=== PATIENT | female | born 1990 | race Caucasian/White ===

== ENCOUNTER 2017-06-12 17:07 | Inpatient (IN) | payer BC, MEDICAID ==
[~2017-06-12] VITALS: Ht 167.6 cm; Wt 94.0 kg
--- NOTE | ~2017-06-12 | OR ---
PATIENT'S NAME: [facility] AGE: 26 Y [address] ROOM: [place] [address] LOCATION: [facility] ADMIT DATE: 06/12/2017 OR/Procedure Report DISCHARGE DATE: FAMILY PHYSICIAN: PHYSICIAN, NO ATTENDING PHYSICIAN: [place] SURGEON: El Mari MD BARBACK: Dorita Solano Dr.'s assistance was required due to the complexity of the case as well as in compliance with [facility] guidelines. DATE OF PROCEDURE: 06/13/2017 PREOPERATIVE DIAGNOSES: Term intrauterine , maternal preeclampsia, maternal diabetes, and unfavorable cervix. POSTOPERATIVE DIAGNOSES: Term intrauterine , maternal preeclampsia, maternal diabetes, and unfavorable cervix. PROCEDURE: Primary low transverse section. ANESTHESIA: Spinal. ESTIMATED BLOOD LOSS: 500 mL. CLINICAL INDICATION: Dre Dubois is a 26-year-old primigravida female at 38 weeks' gestational age. She has insulin-dependent type 1 diabetes. She would develop hypertension and proteinuria leading to preeclampsia. Recommend she undergo a delivery. Her cervix is closed and unfavorable. She wishes to undergo a delivery. FINDINGS: Delivery of a viable 6 pounds and 6 ounce male , scores 8 at 1 minute and 9 at 5 minutes. umbilical and arterial cord blood gas is pending at the time of dictation. DESCRIPTION OF PROCEDURE: The patient was taken to the operating room, given spinal anesthesia with good results, placed in a supine position with a right hip roll, prepped and draped in the usual fashion. A Pfannenstiel skin incision was made with a scalpel. Subcutaneous tissue was dissected sharply. Rectus muscles were split sharply in the midline as was the peritoneum. Bladder flap created. Myometrium incised with a scalpel. Endometrial cavity was entered bluntly. Uterine incision was performed bluntly. At this point in time, there was rapid and easy delivery of a viable 6 pounds and 6 ounce male in a vertex presentation. The umbilical cord was doubly clamped. The intervening segments cut. was handed off to the awaiting nursing services. umbilical, arterial cord blood, and venous cord blood were obtained for blood gas analysis and routine studies respectively. Placenta [facility] 26 Y [address] ROOM: [place] [address] LOCATION: [facility] ADMIT DATE: 06/12/2017 OR/Procedure Report DISCHARGE DATE: FAMILY PHYSICIAN: PHYSICIAN, NO ATTENDING PHYSICIAN: El Mari delivered spontaneously intact with 3 vessels. Exploration of the uterine cavity noted no residual placental or amniotic membranes. Uterine incision was closed with a running continually locking stitch of 0 chromic suture followed by a second imbricating layer consisting of running continuous stitch of 0 chromic suture. Good hemostasis was obtained. Bladder flap was closed with running continuous stitch of 2-0 Vicryl suture. Abdomen was inspected. Any blood or blood clots were retrieved. Tubes and ovaries were normal bilaterally. Abdominal peritoneum was closed with running continuous stitch of 2-0 Vicryl suture. Fascial incision was closed with 2 running continuous stitches of 0 Vicryl suture tied in the midline. Subcutaneous tissue reapproximated using running continuous stitch of 2-0 Vicryl suture. Skin was closed with a running continuous subcuticular stitch of 4-0 Vicryl suture. Sponge, needle, and instrument counts were correct. The patient tolerated procedure well and was taken to the recovery room in good condition. MD ASHELY LA/pankajl /[id number] d: 06/13/17 2342 t: 06/18/17 0751, OPERATIVE SUMMARY
--- NOTE | ~2017-06-12 | DS ---
PATIENT'S NAME: DRE MADRID [facility] AGE: 26 Y [address] ROOM: [place] [address] LOCATION: [facility] ADMIT DATE: 06/12/2017 Discharge Summary DISCHARGE DATE: 06/16/2017 FAMILY PHYSICIAN: PHYSICIAN, NO ATTENDING PHYSICIAN: El Mari final diagnoses A 38-week intrauterine /delivered; insulin-dependent diabetes; preeclampsia; urinary tract infection, unfavorable cervix. REASON FOR HOSPITALIZATION: Dre Madrid is a primigravida female with type 1 diabetes. She presented with proteinuria, but no other symptoms of preeclampsia to contemporary [employer]. She was admitted for 24-hour urine. Over the course of the day, she developed hypertension along with the proteinuria was aside the diagnosis of preeclampsia. With the unfavorable cervix, it was recommended she undergo a delivery. This was performed. She had an unremarkable postoperative course and her blood pressures were resolved by discharge. DISCHARGE MEDICATIONS: She is given prescriptions for Motrin and Percocet. Please see instruction sheet for specifics regarding her discharge instructions. MD ASHELY LA/felicita /[id number] d: t: 06/28/17 1239, DISCHARGE SUMMARY
[2017-06-12 17:31] LABS: BILIRUBIN URINE NEGATIVE (NEGATIVE); BLOOD URINE 25 /UL (NEGATIVE); COLOR URINE YELLOW (YELLOW); GLUCOSE URINE NEGATIVE (NEGATIVE); KETONE URINE 150 mg/dL (NEGATIVE); LEUKOCYTES URINE 500 /UL (NEGATIVE); NITRITE URINE POSITIVE (NEGATIVE); PH URINE 6.5 (4.0-8.0); PROTEIN URINE 100 mg/dL (NEGATIVE); SPEC GRAVITY URINE 1.015 (1.003-1.035); TURBIDITY URINE 3+ (CLEAR); UROBILINOGEN URINE 1 mg/dL (NORMAL)
[2017-06-12 17:39] LABS: BASOPHIL % 0.2 %; EOSINOPHIL % 0.2 %; HEMATOCRIT 36.6 % (33.0-46.0); HEMOGLOBIN 13.2 g/dL (11.0-15.0); IMMATURE GRANULOCYTE # 0.1 K/uL (0.0-0.3); IMMATURE GRANULOCYTE % 0.5 %; LYMPHOCYTE # 3.2 K/uL (0.8-4.0); LYMPHOCYTE % 29.9 %; MCH 31.8 pg (27.0-34.0); MCHC 36.1 gm/dL (32.0-36.5); MCV 88.2 fl (83.0-98.0); MONOCYTE # 0.5 K/uL (0.0-1.0); MONOCYTE % 4.7 %; MPV 11.7 fl (9.4-12.4); NEUTROPHIL % 64.5 %; NRBC % 0 /100WBC (0-0.00); PLATELET COUNT 182 K/uL (150-450); RBC 4.15 M/uL (3.50-5.00); RDW-CV 12.2 % (11.9-14.6); WBC 10.8 K/uL (4.0-11.0)
[2017-06-12 17:39] LABS: WBC URINE 20-50 #/HPF (NEGATIVE)
[2017-06-12 17:40] LABS: BACTERIA URINE MANY (NEGATIVE); EPITHELIAL URINE 20-50 #/HPF (NEGATIVE); RBC URINE 0-2 #/HPF (NEGATIVE)
[2017-06-12 17:55] LABS: ALBUMIN 2.5 gm/dL (3.5-5.0); ALK PHOS 89 IU/L (33-138); ALT 17 IU/L (12-78); ANION GAP 13.8 (10.0-19.0); AST 19 IU/L (10-40); BLOOD UREA NITROGEN 13 mg/dL (6-24); CALCIUM 8.3 mg/dL (8.5-10.5); CHLORIDE 106 mMol/L (96-110); CO2 22 mMol/L (22-32); CREATININE 0.8 mg/dL (0.5-1.1); POTASSIUM 3.8 mMol/L (3.7-5.1); SODIUM 138 mMol/L (135-145); TOTAL BILIRUBIN 0.4 mg/dL (0.0-1.5); TOTAL PROTEIN 6.8 g/dL (6.0-8.4)
[2017-06-12] MEDS ORDERED: PRENATAL 1+1)(P1 TAB PO (18:27)
[2017-06-12] MEDS ORDERED: HUMALOG MI100 UNIT/5 (18:49)
[2017-06-13 05:29] LABS: BASOPHIL % 0.2 %; EOSINOPHIL % 0.1 %; HEMATOCRIT 31.2 % (33.0-46.0); IMMATURE GRANULOCYTE % 0.4 %; LYMPHOCYTE # 3.5 K/uL (0.8-4.0); LYMPHOCYTE % 36.2 %; MCH 31.5 pg (27.0-34.0); MCHC 35.3 gm/dL (32.0-36.5); MCV 89.4 fl (83.0-98.0); MONOCYTE # 0.7 K/uL (0.0-1.0); MONOCYTE % 6.9 %; MPV 11.7 fl (9.4-12.4); NEUTROPHIL # (ANC) 5.4 K/uL (1.8-7.8); NEUTROPHIL % 56.2 %; NRBC % 0 /100WBC (0-0.00); RBC 3.49 M/uL (3.50-5.00); RDW-CV 12.3 % (11.9-14.6); WBC 9.6 K/uL (4.0-11.0)
[2017-06-13 05:33] LABS: PLATELET COUNT 127 K/uL (150-450)
[2017-06-13 05:50] LABS: ALK PHOS 73 IU/L (33-138); ALT 13 IU/L (12-78); ANION GAP 12.9 (10.0-19.0); AST 15 IU/L (10-40); BLOOD UREA NITROGEN 15 mg/dL (6-24); CALCIUM 7.6 mg/dL (8.5-10.5); CHLORIDE 109 mMol/L (96-110); CO2 21 mMol/L (22-32); CREATININE 0.7 mg/dL (0.5-1.1); POTASSIUM 3.9 mMol/L (3.7-5.1); SODIUM 139 mMol/L (135-145); TOTAL PROTEIN 5.4 g/dL (6.0-8.4)
[2017-06-13 05:57] LABS: TOTAL BILIRUBIN 0.3 mg/dL (0.0-1.5)
[2017-06-13 16:57] LABS: BASOPHIL % 0.1 %; EOSINOPHIL % 0.2 %; HEMATOCRIT 34.4 % (33.0-46.0); HEMOGLOBIN 12.2 g/dL (11.0-15.0); IMMATURE GRANULOCYTE # 0.1 K/uL (0.0-0.3); IMMATURE GRANULOCYTE % 0.7 %; LYMPHOCYTE # 2.7 K/uL (0.8-4.0); MCH 31.7 pg (27.0-34.0); MCHC 35.5 gm/dL (32.0-36.5); MCV 89.4 fl (83.0-98.0); MONOCYTE # 0.5 K/uL (0.0-1.0); MONOCYTE % 5.3 %; MPV 11.2 fl (9.4-12.4); NEUTROPHIL # (ANC) 6.4 K/uL (1.8-7.8); NEUTROPHIL % 65.7 %; NRBC % 0 /100WBC (0-0.00); PLATELET COUNT 169 K/uL (150-450); RBC 3.85 M/uL (3.50-5.00); RDW-CV 12.1 % (11.9-14.6); WBC 9.7 K/uL (4.0-11.0)
[2017-06-13 18:58] LABS: BICARBONATE 22.5 mmol/L (18.0-23.0); PCO2 46 mmHg (35-45); PO2 21 mmHg (80-90)
[2017-06-14 05:02] LABS: BASOPHIL % 0.1 %; EOSINOPHIL % 0.2 %; HEMATOCRIT 30.9 % (33.0-46.0); HEMOGLOBIN 11.2 g/dL (11.0-15.0); IMMATURE GRANULOCYTE # 0.1 K/uL (0.0-0.3); IMMATURE GRANULOCYTE % 0.4 %; LYMPHOCYTE # 3.2 K/uL (0.8-4.0); LYMPHOCYTE % 19.8 %; MCH 32.1 pg (27.0-34.0); MCHC 36.2 gm/dL (32.0-36.5); MCV 88.5 fl (83.0-98.0); MONOCYTE # 0.9 K/uL (0.0-1.0); MONOCYTE % 5.3 %; MPV 11.3 fl (9.4-12.4); NEUTROPHIL % 74.2 %; NRBC % 0 /100WBC (0-0.00); PLATELET COUNT 179 K/uL (150-450); RBC 3.49 M/uL (3.50-5.00); RDW-CV 12.1 % (11.9-14.6); WBC 16.2 K/uL (4.0-11.0)
--- NOTE | 2017-06-14 14:02 | NUR ---
Iv Magnesium decreased to 1.5 grams/hr. Lab Mag. Level 6.2.
--- NOTE | 2017-06-14 16:00 | NUR ---
2 hrs after Iv Magnesium decreased to 1.5 gms/hr. Mg level 5.9.
--- NOTE | 2017-06-14 16:56 | NUR ---
Met with patient and significant other/FOB at bedside today. Introduced myself and explained my role with the CM department. Patient states they have all the necessary items at home for baby including a crib or bassinet for sleeping. I instructed her to contact her insurance and notify them of baby's . I provided her with a list of community resources in the [facility]. I also reviewed signs and symptoms of post depression and left her the hand out to refer to. They deny any needs or concerns regarding discharge. Will continue to follow and offer support as needed.
--- NOTE | 2017-06-14 18:00 | NUR ---
06/14 1800: Bps 109/63-150's/90's. Mag. level 6.2 and decreased to 1.5 gms/hr. Iv Mag. d/c'ed @ 18.35. Great u/o-2900+ Good nutrition. On Iv insulin guided by herself. Her own accuchecks 99,126,174,154. Pt. adjusts pump accordingly.
--- NOTE | 2017-06-15 05:46 | NUR ---
VSS, PT UP AND SHOWERED LAST NIGHT. DRESSING REMOVED. INCICSION LOOKS GOOD. STERI STRIPS CLEAN/DRY/INTACT. FUNDUS FIRM, AT UMBILICUS, SCANT FLOW. 1 MOTRIN AND 2 PERCOCET GIVEN AT 2136. LAST BLOOD SUGAR 102. LAST BP 146/79.
--- NOTE | 2017-06-15 17:23 | NUR ---
Last VS: T:98.6 P:96 R: 16 BP: 139/76 Pain ratin . Last pain med: Motrin Medicated at: 1150 Effective: Yes R Lung sounds:CLEAR , L Lung sounds: CLEAR Fundus: FIRM,EVEN , Lochia: SMALL, RUBRA Breasts: SOFT, PUMPING Nipples: SORE-NEWMANN'S OINTMENT AT BEDSIDE Incision: SUTURE, STERI-STRIPS Incision appearance: APPROXIMATED Bowel sounds: ACTIVE Passing flatus: NO Voiding well: YES Significant event: ENCOURAGED TO AMBULATE. 2+ EDEMA IN LOWER LEGS. TEARY TODAY BUT OTHERWISE DOING WELL. NEEDS LOTS OF ENCOURAGEMENT WITH *.
--- NOTE | 2017-06-16 05:37 | NUR ---
Pain rating WNL. Last had Percocet at 2310 and Motrin at 1935. Fundus firm and midline. Small amount of bleeding. Nipples intact. Using shield and has APNO and lanolin. Incision appears to be WNL, sutures and steri strips. Ambulated in halls and showered this shift. BP's 140's/70's-80's. Plans home today
[2017-06-16] MEDS ORDERED: MOTRIN800 MG PO (11:42)
[2017-06-16] MEDS ORDERED: PERCOCET 5-3251 EACH PO (11:42)
[2017-06-16] MEDS ORDERED: AUGMENTIN 875-1 EACH PO (11:43)
== END 2017-06-16 14:14 | disposition disaster alternative care site (69) | DRG 765 ==
LOC: GOBS 17:07 → GOBM 17:07 → GOBS 17:08
PROVIDERS: ADMIT Obstetrics & Gynecology
PROC: 4A1HX4Z Monitoring of Products of Conception, Cardiac Electrical Activity, External Approach (ICD-10-PCS; principal; 2017-06-13)
PROC: 10D00Z1 Extraction of Products of Conception, Low, Open Approach (ICD-10-PCS; principal; 2017-06-13)
DX: O14.94 Unspecified pre-eclampsia, complicating childbirth (principal); O24.92 Unspecified diabetes mellitus in childbirth; Z3A.38 38 weeks gestation of pregnancy; Z37.0 Single live birth; O99.334 Smoking (tobacco) complicating childbirth; F17.210 Nicotine dependence, cigarettes, uncomplicated; O99.324 Drug use complicating childbirth; F12.90 Cannabis use, unspecified, uncomplicated; O34.43 Maternal care for other abnormalities of cervix, third trimester; N88.2 Stricture and stenosis of cervix uteri
CPT/HCPCS: J0295; J0360; J1885; J2001; J3475; J7030; J7120